=== PATIENT | male | born 1995 | race African-American/Black ===

== ENCOUNTER → 2019-12-26 | Outpatient (CLI) | payer OTHER | LOC: MHCPAIN 14:40 | DX: M25.511 Pain in right shoulder (principal); M25.512 Pain in left shoulder; M54.5 Low back pain; G89.29 Other chronic pain | CPT/HCPCS: G0463 ==

== ENCOUNTER 2021-08-03 11:38 | Emergency (ER) | payer OTHER ==
[~2021-08-03] VITALS: Ht 180.3 cm; Wt 120.5 kg
[~2021-08-03 11:38] MED LIST: CONCERTA36 MG PO; CONCERTA54 MG PO; CYMBALTA 60MG60 MG PO; DESOWEN0.051 TP; FLONASE NASAL S16 GM NS; INDERAL LA120 MG PO; KEPPRA1000 MG PO; LIDODERM 5% PATC1 EA TP; NAPROSYN 2250 MG/TAB PO; NIZORAL SHAMPO120 M1 TP; PROTONIX 40MG T40 MG PO; REQUIP 1MG T1 MG/TAB PO; VIAGRA50 M1; ZOFRAN ODT8 MG PO; ZYRTEC10MGSGL; [UNRECOGNIZED DRUG - OTHER] TOP
[2021-08-03 11:43] VITALS: TEMP 98.2
[2021-08-03 13:03] LABS: ALBUMIN 4.1 gm/dL (3.5-5.0); BILIRUBIN,TOTAL 0.4 mg/dL (0.2-1.2); CALCIUM 9.3 mg/dL (8.4-10.2); CREATININE, serum 1.44 mg/dL (0.72-1.25); POTASSIUM 4.5 mmol/L (3.5-4.5)
[2021-08-03 13:27] LABS: BASO % 0.2 % (0.0-2.0); EOS % 0.1 % (0.0-4.0); GRAN # 13.3 K/mm3 (1.4-6.5); GRAN % 81.7 % (42.2-75.2); HEMATOCRIT 44.5 % (42.0-52.0); HEMOGLOBIN 14.6 g/dl (13.5-18.0); LYMPH # 1.7 K/mm3 (1.2-3.4); LYMPH % 10.3 % (20.0-51.0); MEAN CELL VOLUME 87 fl (80.0-100.0); MEAN CORPUSCULAR HEMOGLOBIN 29 pg (27-31); MEAN CORPUSCULAR HGB CONC 33 g/dl (33.0-37.0); MEAN PLATELET VOLUME 10.2 fl (7.4-10.4); MONO # 1.2 K/mm3 (0.1-0.6); MONO % 7.1 % (1.7-9.3); PLATELET COUNT 285 K/mm3 (130-400); REDCELL DISTRIBUTION WIDTH-CV 14.2 % (11.5-14.5)
[2021-08-03 15:55] LABS: ALCOHOL(ethanol),MEDICAL < 10 mg/dL (0-10); CREATINE KINASE 761 U/L (30-200)
[2021-08-03 16:27] LABS: TRICYCLIC ANTIDEPRESS URINE NEGATIVE
[2021-08-03 20:15] VITALS: BP 147/83; PULSE 105
== END 2021-08-03 20:30 | disposition short-term general hospital (02) ==
LOC: COL.ER 11:38
PROVIDERS: Emergency Medicine
DX: S12.600A Unspecified displaced fracture of seventh cervical vertebra, initial encounter for closed fracture (principal); S22.019A Unspecified fracture of first thoracic vertebra, initial encounter for closed fracture; S00.03XA Contusion of scalp, initial encounter; D72.829 Elevated white blood cell count, unspecified; R79.89 Other specified abnormal findings of blood chemistry; G91.9 Hydrocephalus, unspecified; V49.40XA Driver injured in collision with unspecified motor vehicles in traffic accident, initial encounter
CPT/HCPCS: J0696; J1170; J2270; J7030; Q9967

== ENCOUNTER 2021-10-15 12:12 | Outpatient (CLI) | payer OTHER ==
[2021-10-15] VITALS (7 sets, daily range): BP systolic 110–124; BP diastolic 68–87; PULSE 90–109; TEMP 98.9
[~2021-10-15] VITALS: Ht 180.3 cm; Wt 114.7 kg
[~2021-10-15 12:12] MED LIST changes: +DEPAKOTE ER 50500 MG PO; +INDERAL 10MG10 MG PO; +LYRICA 150MG C150 MG PO; +MIRALAX PA17 GM/Dose PO; +RITALIN10 MG PO; +TYLENOL 500MG500 MG PO; +ZYRTEC 10MG10 MG PO
== END 2021-10-15 16:08 | disposition home or self-care (01) ==
LOC: COL.RAD 12:12
DX: M25.512 Pain in left shoulder (principal); M79.602 Pain in left arm; Z98.1 Arthrodesis status
CPT/HCPCS: Q9967

== ENCOUNTER → 2021-10-29 | Outpatient (RCR) | payer OTHER | END | disposition home or self-care (01) | LOC: WSPT → WSOT 10-14 09:00 → WSPT 10-14 10:15 → WSOT 10-26 13:30 → WSPT 09:45 | DX: M79.602 Pain in left arm (principal); Z98.1 Arthrodesis status ==

== ENCOUNTER 2021-11-26 12:45 | Outpatient (RCR) | payer OTHER | END 2021-11-28 | disposition home or self-care (01) | LOC: WSOT | DX: M79.602 Pain in left arm (principal); Z98.1 Arthrodesis status ==

== ENCOUNTER → 2021-12-29 | Outpatient (RCR) | payer OTHER | END | disposition still patient (30) | LOC: WSOT → WSPT 12-21 12:45 → WSOT 15:00 | DX: M79.602 Pain in left arm (principal); Z98.1 Arthrodesis status ==

== ENCOUNTER 2022-01-22 14:15 | Outpatient (RCR) | payer OTHER | END 2022-01-28 | disposition home or self-care (01) | LOC: WSPT | DX: M79.602 Pain in left arm (principal); Z98.1 Arthrodesis status ==

== ENCOUNTER 2022-02-02 14:51 | Outpatient (RCR) | payer OTHER | END 2022-02-28 | LOC: WSPT | DX: M79.602 Pain in left arm (principal); Z98.1 Arthrodesis status ==

== ENCOUNTER → 2022-03-26 | Outpatient (CLI) | payer OTHER | LOC: MHCPAIN 12:43 | DX: M79.2 Neuralgia and neuritis, unspecified (principal); R20.2 Paresthesia of skin; R25.2 Cramp and spasm; Z87.828 Personal history of other (healed) physical injury and trauma | CPT/HCPCS: G0463 ==

== ENCOUNTER → 2022-06-03 | Outpatient (CLI) | payer OTHER | LOC: MHCPAIN 12:58 | DX: M54.50 Low back pain, unspecified (principal); M79.7 Fibromyalgia; Z87.828 Personal history of other (healed) physical injury and trauma; Z98.1 Arthrodesis status; R25.2 Cramp and spasm; Z98.2 Presence of cerebrospinal fluid drainage device | CPT/HCPCS: G0463 ==